=== PATIENT | female | born 1995 | race Hispanic/Latino ===

== ENCOUNTER 2020-07-07 10:10 | Emergency (ER) | payer MEDICAID, OTHER ==
[2020-07-07 10:48] LABS: APPEARANCE,URINE Cloudy (CLEAR); BILIRUBIN,URINE Negative (NEGATIVE); COLOR,URINE Yellow (YELLOW); GLUCOSE, URINE (UA) Negative (NEGATIVE); KETONES,URINE Negative (NEGATIVE); LEUKOCYTE ESTERASE ,URINE Trace (NEGATIVE); NITRATE,URINE Negative (NEGATIVE); OCCULT BLOOD,URINE Negative (NEGATIVE); PH,URINE 5.5 (5.0-8.0); PROTEIN,URINE Negative (NEGATIVE)
[2020-07-07 10:50] LABS: HCG,QUAL RESULT NEGATIVE (NEGATIVE)
[2020-07-07 11:10] LABS: BASOPHILS % (AUTO) 0.3 % (0.0-5.0); EOSINOPHILS % (AUTO) 3.5 % (0.0-8.0); HEMATOCRIT 40.3 % (36-48); LYMPHOCYTES % (AUTO) 19.6 % (21.0-51.0); MEAN CORPUSCULAR HEMOGLOBIN 29.1 pg (27.0-33.0); MEAN CORPUSCULAR HGB CONC 33.3 g/dL (32.0-36.0); MEAN CORPUSCULAR VOLUME 87.4 fL (79-99); MONOCYTES % (AUTO) 6.5 % (3.0-13.0); NEUTROPHILS % (AUTO) 69.5 % (40.0-77.0); PLATELET COUNT (AUTO) 250 K/uL (130-400); RED BLOOD CELL COUNT(AUTO) 4.61 MIL/uL (4.00-5.50); RED CELL DISTRIBUTION WIDTH 13.2 % (11.0-15.5); WHITE BLOOD COUNT (AUTO) 7.2 K/uL (4.8-10.8)
[2020-07-07 11:22] LABS: BACTERIA,URINE Few /HPF (None Seen); RBC,URINE 0-1 /HPF (0-1); WBC,URINE 0-1 /HPF (0-1)
[2020-07-07 11:25] LABS: CREATININE 0.8 mg/dL (0.5-1.5); POTASSIUM 3.9 mmol/L (3.5-5.1)
[2020-07-07 11:29] LABS: ALBUMIN 3.7 g/dL (3.5-5.0); BILIRUBIN,TOTAL 1.3 mg/dL (0.2-1.0); TOTAL PROTEIN, SERUM 8.5 g/dL (6.0-8.3)
[2020-07-07] MEDS ORDERED: KETOROLAC TROMETHAMINE 60 MG/2 ML VIAL ONE (12:16)
== END 2020-07-07 12:27 | disposition home or self-care (01) ==
LOC: EDH 10:10
DX: R10.30 Lower abdominal pain, unspecified (principal); J45.909 Unspecified asthma, uncomplicated; Z98.890 Other specified postprocedural states
CPT/HCPCS: 36415; 80053; 81001; 81025; 83690; 85025; 96372; 99283; J1885

== ENCOUNTER 2021-12-31 06:53 | Day surgery (SDC) | payer MEDICAID ==
[2021-12-27 13:51] LABS: CREATININE 0.8 mg/dL (0.5-1.5); POTASSIUM 3.7 mmol/L (3.5-5.1)
[2021-12-28 08:37] VITALS: BP 104/64
[~2021-12-31] VITALS: Ht 154.9 cm; Wt 83.3 kg
[2021-12-31] VITALS (16 sets, daily range): BP systolic 109–124; BP diastolic 59–73
[~2021-12-31 06:53] MED LIST: LACTATED RINGERS 1000ML 1,000 ML IV ONE
[2021-12-31] MEDS ORDERED: BUPIVACAINE/PF 0.5% 30ML VIAL ONE (07:17)
[2021-12-31] MEDS ORDERED: CEFAZOLIN SODIUM 1 GM VIAL IVP ONE (08:00)
[2021-12-31] MEDS ORDERED: DEXAMETHASONE SOD PHOSPHATE 10MG/ML 1ML VIAL ONE (08:02)
[2021-12-31] MEDS ORDERED: LIDOCAINE PF 100MG/5ML (2%) SYRINGE 5ML ONE (08:02)
[2021-12-31] MEDS ORDERED: SUCCINYLCHOLINE CHLORIDE 20 MG/ML 10 ML VIAL ONE ×2 (08:02→08:06)
[2021-12-31] MEDS ORDERED: PROPOFOL 10 MG/ML 20ML VIAL IV ONE (08:03)
[2021-12-31] MEDS ORDERED: MIDAZOLAM HCL 1 MG/ML 2ML VIAL ONE (08:03)
[2021-12-31] MEDS ORDERED: NEOSTIGMINE 5MG/5ML SYR IV ONE (08:03)
[2021-12-31] MEDS ORDERED: GLYCOPYRROLATE 1 MG/5 ML SYRINGE ONE (08:03)
[2021-12-31] MEDS ORDERED: ONDANSETRON 4MG INJ ONE (08:03)
[2021-12-31] MEDS ORDERED: FENTANYL CITRATE PF 50 MCG/1 ML 2ML VIAL ONE (08:03)
[2021-12-31] MEDS ORDERED: ROCURONIUM 10MG/1ML SYR 10 MG/ML ML ONE (08:04)
[2021-12-31] MEDS ORDERED: LIDOCAINE HCL-MPF 2% 10ML AMP IJ ONE (08:06)
[2021-12-31] MEDS ORDERED: MEPERIDINE-PF 25 MG/ML SYG ONE ×2 (09:10→09:44)
[2021-12-31] MEDS ORDERED: KETOROLAC 30MG VIAL (30MG/ML) ONE ×2 (09:26→09:35)
== END 2021-12-31 11:45 | disposition home or self-care (01) ==
LOC: DAH 06:53
PROVIDERS: ATTEND Surgery
DX: K80.10 Calculus of gallbladder with chronic cholecystitis without obstruction (principal); J45.909 Unspecified asthma, uncomplicated; Z79.01 Long term (current) use of anticoagulants
CPT/HCPCS: 80048; 84703; 87426; 36415; 47562; A4663; J7030; J7120; J3010; J0690; J3490 ×4; J1100; J2710; J0330 ×2; J2250; J2405; J1885 ×2; J2175 ×2; C1769 ×3; A4649 ×2; A4215; A4223; A4222; A4221; S0020; A4600; J2001; J2704